=== PATIENT | female | born 1950 | race Two or more races ===

== ENCOUNTER 2018-02-06 07:20 | Outpatient (CLI) | payer OTHER | END 2018-02-06 10:32 | disposition home or self-care (01) | LOC: NUCLEAR 07:20 | DX: I20.9 Angina pectoris, unspecified (principal) | CPT/HCPCS: 78452; 93017; A9500 ==

== ENCOUNTER 2018-09-21 09:21 | Outpatient (CLI) | payer OTHER | END 2018-09-21 09:23 | disposition home or self-care (01) | LOC: TOM 09:21 | DX: D50.8 Other iron deficiency anemias (principal) ==

== ENCOUNTER 2020-12-01 08:00 | Outpatient (CLI) | payer OTHER | END 2020-12-01 08:30 | disposition home or self-care (01) | LOC: PPH VACUNA 08:00 | PROVIDERS: ATTEND Emergency Medicine Pediatric Emergency Medicine | DX: Z23 Encounter for immunization (principal) ==

== ENCOUNTER 2022-05-20 07:17 | Outpatient (CLI) | payer OTHER | END 2022-05-20 07:25 | disposition home or self-care (01) | LOC: NUCLEAR 07:17 | PROVIDERS: ATTEND Internal Medicine Cardiovascular Disease | DX: I20.9 Angina pectoris, unspecified (principal) | CPT/HCPCS: 78452; 93017; A9500; J0153 ==